=== PATIENT | female | born 1965 | race Caucasian/White ===

== ENCOUNTER → 2020-02-09 | Outpatient (CLI) | payer BC ==
[2020-02-09 15:53] VITALS: BP 116/76; PULSE 82; RESP 18; TEMP 98
--- NOTE | 2020-02-09 16:25 | P.GSHP ---
History of Present Illness H&P Date: 02/09/20 Chief Complaint: abnormal mammogram of the right breast Rosa is a 54-year-old white female who had a bilateral screening mammogram performed on the 2019. This revealed postoperative changes in the inferior portion of the left breast. A group of microcalcifications in the upper outer quadrant of the right breast at the 10 o'clock position which was increasing in number compared to prior studies. The patient subsequently underwent magnification views of the right breast. Magnification views were performed on . These revealed interval increase in number of microcalcifications in the upper outer quadrant of the right breast and recommendation was for a stereotactic core biopsy. The patient does not feel anything of concern in her breast. She is not complaining of any nipple discharge or skin changes. Left breast biopsy done in approximately 2014. This was benign. She is not complaining of any trauma or infection in her breast. Caffeine: 2 cups of coffee per day and intermittent pop Smoking: Half pack per day for 17 years She is not exposed to secondhand smoke Chocolate: Intermittently Hormones: None at the present time Family history: father: prostate cancer Hormonal history: Menarche: 10 M1, breast fed: no, age at first : 23 menopause: uterine ablation 2007, age 47 hormones: BCP: 10 years no other hormones Surgical Hisgtory: 1. uterine ablation 2.D&C 3. C section times 3 4. wisdom teeth 5. gallbladder Medical History 1. none Social History: smoke: Half a pack per day for 17 years Alcohol: One time a month Drugs: Negative - Constitutional Constitutional: Reports sweats - EENT Eyes: denies blurred vision, denies pain Ears: deny: decreased hearing, tinnitus Ears, nose, mouth and throat: Denies headache, Denies sore throat - Breasts Breasts: bilateral: as per HPI - Cardiovascular Comment: HTN Cardiovascular: Denies chest pain, Denies shortness of breath - Respiratory Respiratory: Denies cough, Denies 7 - Gastrointestinal Gastrointestinal: Denies abdominal pain, Denies diarrhea, Denies nausea, Denies vomiting - Genitourinary (Female) Genitourinary: Denies dysuria, Denies hematuria - Menstruation Menstruation: Reports postmenopausal - Musculoskeletal Musculoskeletal: Denies myalgias - Integumentary Comment: excema Integumentary: Denies pruritus, Denies rash - Neurological Neurological: Denies numbness, Denies weakness - Psychiatric Psychiatric: Denies anxiety, Denies depression - Endocrine Endocrine: Denies fatigue, Denies weight change - Hematologic/Lymphatic Comment: none - Allergic/Immunologic Allergic/Immunologic: Reports as per HPI Past Medical History Past Medical History: Hypertension, Liver Disease, Skin Disorder Additional Past Medical History / Comment(s): HX: eczema, fatty liver, ETOH abuse 2.5yrs. History of Any Multi-Drug Resistant Organisms: None Reported Past Surgical History: Cholecystectomy, Tubal Ligation Additional Past Surgical History / Comment(s): x 3, D&C, uterine ablation, wisdom teeth extraction x 4. Past Anesthesia/Blood Transfusion Reactions: No Reported Reaction Past Psychological History: No Psychological Hx Reported Additional Psychological History / Comment(s): Pt lives at home with her and 2 of her 3 grown children. She is independent. She drives a car. She uses no assistive devices and has no home care agencies. Smoking Status: Current every day smoker Past Alcohol Use History: Rare Additional Past Alcohol Use History / Comment(s): Pt stateshx of drinks 7-8 beers a day for approximately a couple of years. She smokes a half pack daily since age 16yrs. 02-02-20 Pt states she rarely drinks, quit in 2014 Past Drug Use History: None Reported - Past Family History Father Family Medical History: Cancer Additional Family Medical History / Comment(s): Father recently diagnosed with prostate cancer. Mother Family Medical History: No Reported History Additional Family Medical History / Comment(s): Mother from bronchitis in her 60's. Medications and Allergies Home Medications Medication Instructions Recorded Confirmed Type Lisinopril 10 mg PO DAILY 12/05/14 02/09/20 History Ezetimibe [Zetia] 10 mg PO DAILY 02/02/20 02/09/20 History Omeprazole [PriLOSEC] 40 mg PO AC-BRKFST 02/02/20 02/09/20 History Allergies Allergy/AdvReac Type Severity Reaction Status Date / Time No Known Drug Allergies Allergy Unknown Verified 02/09/20 15:52 Surgical - Exam Vital Signs Temp Pulse Resp BP Pulse Ox 98.0 F 82 18 116/76 96 02/09/20 15:50 02/09/20 15:50 02/09/20 15:50 02/09/20 15:50 02/09/20 15:50 BMI 25.6 - General well developed, well nourished, no distress - Eyes normal ocular movement - ENT no hearing loss, no congestion - Neck no masses, trachea midline - Respiratory normal respiratory effort, clear to auscultation - Cardiovascular Rhythm: regular Heart Sounds: normal: S1, S2 - Abdomen protuberant Abdomen: soft, non tender, no guarding, no rigid, no rebound - Integumentary normal turgor - Neurologic no disoriented, no combative - Musculoskeletal normal gait, normal posture - Psychiatric oriented to time, oriented to person, oriented to place, speech is normal, memory intact breast exam: BRA 40D inspection: no nipple inversion, ptosis grade3 Palpation: Right breast: Multi-positional exam fibrocystic changes no dominant masses or nodules of concern Right axilla: No adenopathy of concern Left breasts: No dominant masses or nodules of concern of multiple positional exam Left axilla: No adenopathy of concern Results mammogram results reviewed Assessment and Plan Assessment: Impression: 1. Right breast mammographic microcalcifications 2. Fibrocystic breast changes 3. Hypertension 4. exczema Plan: 1. right breast stero biopsy Patient has been recommended to undergo stereotactic core biopsy. Alternatives which would be watchful waiting or open biopsy in the operating room or not recommend mended. The risks and benefits of the procedure including bleeding infection reaction to the anesthetic are discussed. Patient and her understand and she wishes to proceed. This is scheduled for next week. CC: DR. Angella Cisneros encounter 35 minutes, > 50% of time in planning and counselling
== END | disposition home or self-care (01) ==
LOC: WWCWWP 14:42
PROVIDERS: ATTEND Surgery
DX: Z53.9 Procedure and treatment not carried out, unspecified reason (principal)

== ENCOUNTER → 2020-02-16 | Day surgery (SDC) | payer BC ==
[2020-02-16 07:38] VITALS: RESP 16
[2020-02-16 08:52] VITALS: BP 148/78; PULSE 76; TEMP 97.8
--- NOTE | 2020-02-16 08:56 | P.PCN ---
Date of Procedure: 02/16/20 Preoperative Diagnosis: Microcalcifications upper outer quadrant of the right breast and 10 o'clock position increase in a number Postoperative Diagnosis: Same Procedure(s) Performed: Stereotactic core biopsy right breast Anesthesia: local Surgeon: Tere Puri Estimated Blood Loss (ml): 0 Pathology: other (Breast tissue) Condition: stable Disposition: same day Indications for Procedure: Increasing microcalcifications right breast upper outer quadrant Operative Findings: Microcalcifications in biopsy specimen Description of Procedure: The patient is a 54-year-old white female who was noted to have increasing micr ocalcifications in the 10 o'clock position of the right breast. Biopsy was recommended. Stereotactic core biopsy versus watchful waiting versus open biopsy was considered with recommendation been stereotactic core biopsy. The patient understands and wishes to proceed. Patient was taken to [facility] core biopsy room. She was positioned on the low rad table. A rn intake film was obtained. The area of concern was identified. A stereo pair was obtained. The area was targeted. The breast was prepped using Betadine. 20 mL of 1% lidocaine was used to anesthetize the area of concern. An 18-gauge vacuum-assisted core biopsy needle was driven to the correct coordinates. The needle was fired. Post fire films were obtained. The needle was noted to be to the right of the lesion on the X axis, and this was corrected. Repeat radiographs revealed the needle to be in a better location. 8 stereotactic cores of tissue were taken taking; 3 at the 9 o'clock position. Radiograph of the specimen revealed the area of concern had been sampled with microcalcifications in the specimen. A secure cira Top-Hat clip was left in place. Radiograph revealed this was in the correct location. The patient tolerated the procedure in stable condition. The patient will follow-up with Dr. Alonso next week. The specimen was sent to pathology.
--- NOTE | 2020-02-16 16:12 | MM ---
EXAMINATION TYPE: MG stereo VAD BX RT DATE OF EXAM: 02/16/2020 COMPARISON: Mammogram 01/16/2020 CLINICAL HISTORY: Abnormal mammogram TECHNIQUE: Stereotactic guided core biopsy of right breast. FINDINGS: [facility] pathway for biopsy was chosen. The procedure was performed by Dr. Gavin Rincon. Targeting was provided by radiology. Specimen: Specimen demonstrates calcifications within the specimen. Surgical clip is at the resected calcification site. Post procedure mammogram mammogram: Post procedure mammogram was obtained. Surgical clip is in the expected calcifications site. IMPRESSION: 1. Successful stereotactic core biopsy right breast calcifications. Recommendations: 1. Recommendations are pending pathology results. Pathology Results: High Risk RIGHT BREAST, STEREOTACTIC CORE BIOPSY: Fibrocystic changes including fibroadenomatoid hyperplasia with calcifications, fibrosis, cysts and sclerosing adenosis. Radial scar with usual type ductal hyperplasia. Recommendation Surgical consult of the right breast. Needle loc with excision for radial scar. MTDD
== END ==
LOC: RADMAMWWP 07:10
PROVIDERS: ATTEND Surgery
DX: D24.1 Benign neoplasm of right breast (principal); N60.31 Fibrosclerosis of right breast; N60.21 Fibroadenosis of right breast
CPT/HCPCS: 88305; 19081; A4648; J2001

== ENCOUNTER → 2020-02-24 | Outpatient (CLI) | payer BC ==
[2020-02-24 15:45] VITALS: BP 126/79; PULSE 74; RESP 18; TEMP 98.5
--- NOTE | 2020-02-24 16:15 | P.PN ---
Subjective Progress Note Date: 02/24/20 Principal diagnosis: radial scar right breast on stero biopsy Rosa is a 54-year-old white female status post stereotactic core biopsy right breast on 02-16-20. Pathology revealed a radial scar. She was recommended to have a needle localization and resection. The patient has no complaints related to the procedure. We have discussed the operative approach to do this and the resection could be done via a Coe pattern reduction mammoplasty incision. The patient is interested in this approach being utilized. She is going to confirm this with her insurance company. We have also discussed that should this approach be utilized she will need a symmetry procedure on the contralateral breast. Objective - Vital Signs Vital signs: Vital Signs Temp 98.5 F 02/24/20 15:43 Pulse 74 02/24/20 15:43 Resp 18 02/24/20 15:43 BP 126/79 02/24/20 15:43 Pulse Ox 95 02/24/20 15:43 Intake & Output 02/23/20 02/24/20 02/24/20 18:59 06:59 18:59 Weight 63.503 kg - Exam BMI 25.6 - Constitutional General appearance: Present: average body habitus - EENT ENT: Present: hearing grossly normal - Respiratory Respiratory: bilateral: CTA - Cardiovascular Rhythm: regular Heart sounds: normal: S1, S2 - Integumentary Integumentary: Present: normal turgor - Musculoskeletal Musculoskeletal: Present: gait normal - Psychiatric Psychiatric: Present: A&O x's 3, appropriate affect, intact judgment & insight - Additional findings Additional findings: Biopsy site right breast clean and dry no evidence of hematoma no infection Assessment and Plan Assessment: Impression: 1. Radial scar and stereo biopsy right breast 2. Needle localization excisional biopsy, patient would like this to be done via a Coe pattern reduction mastopexy incision Plan: 1. Needle localization excisional biopsy via Coe pattern reduction mastopexy incision of the right breast 2. Patient is going to check her insurance to assure left breast symmetry procedure can be performed CC: Kanu Cortes Risk and benefits of the procedure were discussed with the patient and her daughter. They understand and this will be scheduled in the near future. Using a purple marking pen the lines for possible resection should a coe pattern resection be done were marked. encounter 20 minutes, > 50% of time in planning and counselling
== END | disposition home or self-care (01) ==
LOC: WWCWWP 15:37
PROVIDERS: ATTEND Surgery
DX: Z53.9 Procedure and treatment not carried out, unspecified reason (principal)

== ENCOUNTER → 2020-04-27 | Outpatient (CLI) | payer BC ==
--- NOTE | 2020-04-27 16:11 | P.PN ---
Subjective Progress Note Date: 04/27/20 Principal diagnosis: radial scar right breast Rosa is a 54-year-old white female who had a bilateral screening mammogram performed on the 2019. This revealed postoperative changes in the inferior portion of the left breast. A group of microcalcifications in the upper outer quadrant of the right breast at the 10 o'clock position which was increasing in number compared to prior studies. The patient subsequently underwent magnification views of the right [place] [id number]. These revealed interval increase in number of microcalcifications in the upper outer quadrant of the right breast and recommendation was for a stereotactic core biopsy. The patient does not feel anything of concern in her breast. She is not complaining of any nipple discharge or skin changes. Left breast biopsy done in approximately 2014. This was benign. She is not complaining of any trauma or infection in her breast. Stereotactic core biopsy was performed and [id number]. Pathology revealed radial scar with fibrocystic changes. Secondary to the radial scar needle localization and excisional biopsy was recommended. The patient understands the risks and benefits and wishes to proceed. Caffeine: 2 cups of coffee per day and intermittent pop Smoking: Half pack per day for 17 years She is not exposed to secondhand smoke Chocolate: Intermittently Hormones: None at the present time Family history: father: prostate cancer Hormonal history: Menarche: 10 M1, breast fed: no, age at first : 23 menopause: uterine ablation 2007, age 47 hormones: BCP: 10 years no other hormones Surgical Hisgtory: 1. uterine ablation 2.D&C 3. C section times 3 4. wisdom teeth 5. gallbladder Medical History 1. none Social History: smoke: Half a pack per day for 17 years Alcohol: One time a month Drugs: Negative - Constitutional Constitutional: Reports sweats - EENT Eyes: denies blurred vision, denies pain Ears: deny: decreased hearing, tinnitus Ears, nose, mouth and throat: Denies headache, Denies sore throat - Breasts Breasts: bilateral: as per HPI - Cardiovascular Comment: HTN Cardiovascular: Denies chest pain, Denies shortness of breath - Respiratory Respiratory: Denies cough, - Gastrointestinal Gastrointestinal: Denies abdominal pain, Denies diarrhea, Denies nausea, Denies vomiting - Genitourinary (Female) Genitourinary: Denies dysuria, Denies hematuria - Menstruation Menstruation: Reports postmenopausal - Musculoskeletal Musculoskeletal: Denies myalgias - Integumentary Comment: excema Integumentary: Denies pruritus, Denies rash - Neurological Neurological: Denies numbness, Denies weakness - Psychiatric Psychiatric: Denies anxiety, Denies depression - Endocrine Endocrine: Denies fatigue, Denies weight change - Hematologic/Lymphatic Comment: none - Allergic/Immunologic Allergic/Immunologic: Reports as per HPI Objective - Vital Signs Vital signs: Intake & Output 04/26/20 04/27/20 04/27/20 18:59 06:59 18:59 Weight 63.503 kg - Exam BMI 25.6 - Constitutional General appearance: Present: average body habitus - EENT Eyes: Present: EOMI ENT: Present: hearing grossly normal - Neck Neck: Present: normal ROM - Respiratory Respiratory: bilateral: CTA - Cardiovascular Rhythm: regular Heart sounds: normal: S1, S2 - Gastrointestinal General gastrointestinal: Present: normal bowel sounds, soft - Integumentary Integumentary: Present: normal turgor - Musculoskeletal Musculoskeletal: Present: gait normal - Psychiatric Psychiatric: Present: A&O x's 3, appropriate affect, intact judgment & insight - Additional findings Additional findings: breast exam: BRA: 40D inspection: grade 3 ptosis bilateral palpation: right breast: multi positional exam no dominant masses or nodules of concern Right axilla: No adenopathy of concern left breast: Multi-positional exam no dominant masses or nodules of concern left breast smaller than right breast Left axilla: No adenopathy of concern Assessment and Plan Assessment: Impression: 1. Radial scar on stereotactic core biopsy right breast 2. Macromastia 3. Shoulder notching back pain 4. Asymmetry of the breast with right breast being larger than the left breast Plan: 1. Patient to undergo needle localization excisional biopsy of the radial scar in the right breast, this will be done via a fowler pattern reduction mastopexy incision 2. Preoperative clearance The patient was noted to have radial scar and stereotactic core biopsy. It is necessary for excisional biopsy of this to be performed. The patient was given the option of this being performed via a simple incision and resection versus via a was put a reduction mastopexy incision. She is opted for the fowler pattern reduction mastopexy incision. She understands the risks and benefits and wishes to proceed. She understands that she will have asymmetry of the breast following this and not she may opt for surgery for symmetry procedure. She declined offered to see a plastic surgeon. It is necessary she stop smoking prior to the procedure. She understands that if the lesion were cancer that may be necessary to do additional surgery. Lines were drawn S2 with incision would be made. The patient understands and wishes to proceed. CC: Tisha Herbert encounter 30 minutes, > 50% of time in planning and counselling
[2020-04-27 16:29] VITALS: BP 133/84; PULSE 80; RESP 18; TEMP 98
== END | disposition home or self-care (01) ==
LOC: WWCWWP 15:32
PROVIDERS: ATTEND Surgery
DX: Z53.9 Procedure and treatment not carried out, unspecified reason (principal)

== ENCOUNTER 2020-05-08 09:51 | Day surgery (SDC) | payer BC ==
[2020-05-03 14:27] VITALS: BMI 25.6
[~2020-05-08 09:51] MED LIST: HEPARIN SODIUM,PORCINE 5,000 UNIT/ML 1 ML VIAL SQ ONE
[2020-05-08] MEDS ORDERED: LACTATED RINGERS 1,000 ML IV SCH (10:10)
[2020-05-08] MEDS ORDERED: DEXAMETHASONE SOD PHOSPHATE 10 MG/ML 1 ML VIAL IV ONE (10:10)
[2020-05-08] MEDS ORDERED: LIDOCAINE 1% (10MG/ML) FOR IV START INTRADERMA PRN (10:10)
[2020-05-08 10:22] VITALS: RESP 16
[2020-05-08] MEDS ORDERED: HEPARIN SODIUM,PORCINE 5,000 UNIT/ML 1 ML VIAL ONE (10:28)
[2020-05-08] MEDS ORDERED: ONDANSETRON 4 MG/2 ML VIAL ONE (10:28)
[2020-05-08] MEDS ORDERED: ALPRAZolam 0.5 MG TAB ONE (10:28)
[2020-05-08] MEDS ORDERED: LIDOCAINE 1% INJ 10MG/ML (20 ML MDV) SQ ONE ×2 (11:14→14:24)
[2020-05-08] MEDS ORDERED: LIDOCAINE 1% INJ 10MG/ML (20 ML MDV) ONE (13:37)
[2020-05-08] MEDS ORDERED: PROPOFOL 10 MG/ML 20 ML VIAL IV ONE (13:37)
[2020-05-08] MEDS ORDERED: HYDROmorphone (PF) 1 MG/ML ONE (13:37)
[2020-05-08] MEDS ORDERED: fentaNYL (PF) 50 MCG/ML 2 ML AMP ONE (13:37)
[2020-05-08] MEDS ORDERED: MIDAZOLAM 2 MG/2 ML VIAL ONE (13:37)
--- NOTE | 2020-05-08 15:23 | MM ---
EXAMINATION TYPE: MG pre op needle loc RT, MG surgical specimen RT DATE OF EXAM: 05/08/2020 COMPARISON: Prior stereotactic guided core biopsy February 16, 2020 and older studies. CLINICAL HISTORY: Radial scar or high risk lesion on stereo biopsy February 16, 2020. TECHNIQUE: Needle localization with wire placement and surgical excision of area of concern in the right breast. FINDINGS: The procedure of needle localization with wire placement and than surgical excision was explained to the patient. Benefits, alternatives, and risks were discussed. An informed consent was then obtained. The shortest pathway for procedure was chosen. Shortest pathway was lateral approach. The overlying skin was prepped and draped in usual sterile fashion. Lidocaine is used as anesthetic into the skin and subcutaneous tissue up to the level of area of concern. A 5 cm needle was used. It was placed via a lateral approach under mammographic guidance. Subsequent 90 degrees mammogram show the needle to be in satisfactory position relative to the targeted area. At this point, wire was placed and the needle was withdrawn. The wire was fixed to patient's skin. Images were marked for surgeon. The patient tolerated the procedure well without any immediate complication. The patient was kept in the radiology department for short stay after the procedure and then taken to surgery for surgical excision. Targeted biopsy clip and wire are identified in specimen mammogram. The patient was kept in hospital for short stay after the procedure and then discharged home in stable condition. IMPRESSION: Successful, uncomplicated needle localization with wire placement and surgical excision of targeted biopsy clip in the right breast, full pathology results to follow. Pathology Results: Benign A. RIGHT BREAST, NEEDLE LOCALIZATION EXCISION: Fibrocystic changes including sclerosing adenosis with calcifications, fibrosis, fibroadenomatoid hyperplasia, cysts and apocrine metaplasia. Previous biopsy site. B. RIGHT BREAST, REDUCTION MAMMOPLASTY TISSUE: Benign skin and breast tissue with fibrocystic changes. Recommendation Follow up mammogram of the right breast in 6 months. MARISSA
--- NOTE | 2020-05-08 16:04 | P.OP ---
Date of Procedure: 05/08/20 Preoperative Diagnosis: Radial scar on core biopsy/grade 3 ptosis and macromastia Postoperative Diagnosis: Same Procedure(s) Performed: needle localization and excisional biopsy right breast via Coe pattern reduction mastopexy incision Anesthesia: VIVIENA Surgeon: Tere Puri Estimated Blood Loss (ml): 75 IV fluids (ml): 400 Pathology: other (breast tissue) Condition: stable Disposition: same day Indications for Procedure: radial scar on core biopsy, patient with grade 3 ptosis and macromastia Operative Findings: Fibrofatty breast tissue Description of Procedure: Rosa is a 54-year-old white female who had a core biopsy done revealing a radial scar in the right breast. It was recommended she undergo needle localization and excisional biopsy. She also has grade 3 ptosis and macr omastia. After discussion she wished this to be removed via an onco plastic incision via a Coe pattern mastopexy incision In the preoperative area the margin so the incision were drawn. Risk and benefits were again discussed with the patient and her and she was given the option of a simple lumpectomy however she very much wished this to be removed via a reduction mastopexy incision. The markings were placed for a Coe pattern. The patient was taken to the operating room and the inferior pedicle was de- epithelialized. A # 45 cookie cuutter was utilized for the nipple areolar size. This was also utilized for the size of the new nipple areolar opening. After the de-epithelialization was performed using the other pattern lines which had been drawn to excise the redundant Skin and subcutaneous tissue. The skin flaps were then developed around the breast parenchyma in the subcuticular plane. The skin flap which was developed laterally was dissected to the needle which was used for localization. Wide excision around the needle was performed. The defect was closed using 3-0 Vicryl suture. The tissue was painted for orientation. Radiograph of this revealed that the area of concern had been removed. The specimens were approximately 130 g. The skin was brought together, the subcutaneous tissues were reapproximated. They were closed using 3-0 Vicryl suture. This was followed by 4-0 Monocryl suture in a subcuticular tissue. This was followed by a nylon suture. The patient tolerated the procedure in stable condition. All instrument and sponge counts were correct at the end of the case.
--- NOTE | 2020-05-08 16:06 | P.DS ---
Providers Attending physician: Tere Puri Primary care physician: Saravanan Perales Plan - Discharge Summary Discharge Rx Participant: No New Discharge Prescriptions: No Action lisinopriL [Lisinopril] 10 mg PO DAILY Ezetimibe [Zetia] 10 mg PO HS Omeprazole [PriLOSEC] 40 mg PO AC-BRKFST Stool Softner 1 tab PO DAILY Discharge Medication List lisinopriL [Lisinopril] 10 mg PO DAILY 12/05/14 [History] Ezetimibe [Zetia] 10 mg PO HS 02/02/20 [History] Omeprazole [PriLOSEC] 40 mg PO AC-BRKFST 02/02/20 [History] Stool Softner 1 tab PO DAILY 05/03/20 [History] Follow up Appointment(s)/Referral(s): Tere Puri MD [STAFF PHYSICIAN] - 1 Week Activity/Diet/Wound Care/Special Instructions: do not drive until seen by Dr. Alonso may shower after 48 hours wear bra at all times Discharge Disposition: HOME SELF-CARE
[2020-05-08 16:24] VITALS: TEMP 97.4
[2020-05-08] MEDS ORDERED: LACTATED RINGERS 1,000 ML IV ONE (17:09)
[2020-05-08] MEDS ORDERED: HYDROcodone/APAP 5-325MG 1 EACH TAB ONE (17:25)
[2020-05-08] MEDS ORDERED: HYDROcodone/APAP 5-325MG 1 EACH TAB PO ONE (17:30)
[2020-05-08 17:49] VITALS: BP 130/80; PULSE 70
== END 2020-05-08 18:27 | disposition home or self-care (01) ==
LOC: OR 09:51
PROVIDERS: ATTEND Surgery
DX: N60.21 Fibroadenosis of right breast (principal); N60.31 Fibrosclerosis of right breast; N60.81 Other benign mammary dysplasias of right breast; N62 Hypertrophy of breast; N64.81 Ptosis of breast; L90.5 Scar conditions and fibrosis of skin; F17.210 Nicotine dependence, cigarettes, uncomplicated; I10 Essential (primary) hypertension; E78.5 Hyperlipidemia, unspecified; K21.9 Gastro-esophageal reflux disease without esophagitis; Z79.899 Other long term (current) drug therapy; Z80.42 Family history of malignant neoplasm of prostate; Z98.891 History of uterine scar from previous surgery; Z98.818 Other dental procedure status; Z90.49 Acquired absence of other specified parts of digestive tract; Z98.890 Other specified postprocedural states
CPT/HCPCS: 19125; 88305; 88307; 76098; 19281; J2250; J1644; J1100; J0690; J2405; J2001; J3010; J1170; J2704

== ENCOUNTER → 2020-05-17 | Outpatient (CLI) | payer BC ==
[2020-05-17 13:45] VITALS: BP 150/75; PULSE 70; RESP 18; TEMP 98.2
--- NOTE | 2020-05-17 13:50 | P.PN ---
Progress Note - Text Progress Note Date: 05/17/20 Rosa is a 54-year-old white female status post right breast needle localization and excisional biopsy of a radial scar. Final pathology revealed fibrocystic changes including sclerosing adenosis no cancer. This was done via a reduction mammoplasty incision. The patient has done well postoperatively she has some minimal swelling in the breast. There is no evidence of infection. She has some minimal necrosis at the inferior aspect of the nipple areolar complex. This appears to be partial-thickness. She does have sensation in the nipple areolar complex. Physical examination: Lungs: Decreased breath sounds at the bases with some inspiratory wheezing Heart: Regular rate and rhythm Incisions: Clean and dry some partial thickness necrosis at the inferior areolar aspect, the sutures do not appear ready for removal at this time Fullness of the breast with some questionable seroma fluid nothing for drainage at this time No evidence of infection Impression/plan: 1. Patient doing well postop right breast needle localization excisional biopsy via a reduction mammoplasty approach Plan: 1. Sutures should remain until next week 2. Patient to call if she has any questions or concerns Patient is very satisfied with the cosmetic results and wishes the contralateral breast to be operated on for symmetry.
== END | disposition home or self-care (01) ==
LOC: WWCWWP 12:50
PROVIDERS: ATTEND Surgery
DX: Z53.9 Procedure and treatment not carried out, unspecified reason (principal)

== ENCOUNTER → 2020-05-24 | Outpatient (CLI) | payer BC ==
--- NOTE | 2020-05-24 09:05 | P.PN ---
Progress Note - Text Rosa is a 54-year-old white female status post right breast needle localization and excisional biopsy of a radial scar on 05-08-20. Final pathology revealed fibrocystic changes including sclerosing adenosis no cancer. This was done via a reduction mammoplasty incision. She has reduced her smoking 3-4 cigarettes per day. She does not complain of any fever or chills. She is not complaining of any swelling or pain in the breasts. Physical examination: Lungs: Breath sounds clear basis today Heart: Regular rate and rhythm Incisions: Clean and dry, no evidence of infection, partial thickness necrosis noted before is sloughing and healing Fullness of the breast with some questionable seroma fluid No evidence of infection Impression/plan: 1. Patient doing well postop right breast needle localization excisional biopsy via a reduction mammoplasty approach done 05-08-20 Plan: 1. Sutures removed 2. Patient to call if she has any questions or concerns 3. aspiration of seroma Patient is very satisfied with the cosmetic results and wishes the contralateral breast to be operated on for symmetry.
--- NOTE | 2020-05-24 09:07 | P.PCN ---
Date of Procedure: 05/24/20 Preoperative Diagnosis: seroma right breast Postoperative Diagnosis: Same Procedure(s) Performed: Aspiration seroma right breast Surgeon: Tere Puri Pathology: none sent Condition: stable Disposition: same day Indications for Procedure: Seroma right breast Operative Findings: serous fluid right breast Description of Procedure: The right breast appeared to have a seroma at the lower inner aspect. After informed consent aspiration was performed. The area was prepped using alcohol. A 60 mL syringe with an 18-gauge needle was used to aspirate the seroma fluid. Approximately 215 mL of fluid was removed. The fluid was serous in nature. The patient tolerated the procedure in stable condition.
[2020-05-24 09:42] VITALS: BP 153/87; PULSE 77; RESP 16; TEMP 98.3
== END | disposition home or self-care (01) ==
LOC: WWCWWP 08:22
PROVIDERS: ATTEND Surgery
DX: Z53.9 Procedure and treatment not carried out, unspecified reason (principal)

== ENCOUNTER → 2020-06-01 | Outpatient (CLI) | payer BC ==
--- NOTE | 2020-06-01 08:51 | P.PN ---
Progress Note - Text Progress Note Date: 06/01/20 Rosa is a 54-year-old white female status post right breast needle localization and excisional biopsy of a radial scar on 05-08-20. Final pathology revealed fibrocystic changes including sclerosing adenosis no cancer. This was done via a reduction mammoplasty incision. She has reduced her smoking 5 cigarettes per day. She does not complain of any fever or chills. She is not complaining of any swelling or pain in the breasts. This last seen in 1719 at which time a seroma was drained. Physical examination: Lungs: Breath sounds decreased at bases Heart: Regular rate and rhythm Incisions: Clean and dry, no evidence of infection, partial thickness necrosis noted before is sloughing and healing Fullness of the breast with some questionable seroma fluid No evidence of infection Impression/plan: 1. Patient doing well postop right breast needle localization excisional biopsy via a reduction mammoplasty approach done 05-08-20 Plan: 1. Patient to call if she has any questions or concerns 2. aspiration of seroma Patient is very satisfied with the cosmetic results and wishes the contralateral breast to be operated on for symmetry. Additional CC's: Tisha Zelaya
--- NOTE | 2020-06-01 08:52 | P.OP ---
Date of Procedure: 06/01/20 Preoperative Diagnosis: Seroma right breast Postoperative Diagnosis: Same Procedure(s) Performed: Aspiration seroma Surgeon: Tere Puri Description of Procedure: The area of fluctuance of the lateral aspect of the breast was prepped using alcohol. An 18-gauge needle on a 60 mL syringe was inserted into an area of fluctuance. Approximately 100 mL of fluid which was serous in nature was withd rawn. Following this the made a mild amount of fluctuance the medial aspect of the breast the breast was again prepped using alcohol. An 18-gauge needle on a 60 mL syringe was inserted and 20 mL of fluid was obtained. Total proximally 120 mL of seroma fluid was aspirated. The patient tolerated procedure in stable condition.
[2020-06-01 09:10] VITALS: BP 162/83; PULSE 73; RESP 18; TEMP 97.8
== END | disposition home or self-care (01) ==
LOC: WWCWWP 08:27
PROVIDERS: ATTEND Surgery
DX: Z53.9 Procedure and treatment not carried out, unspecified reason (principal)

== ENCOUNTER → 2020-06-15 | Outpatient (CLI) | payer BC ==
[2020-06-15 09:00] VITALS: BP 138/92; PULSE 82; RESP 12; TEMP 98.1
--- NOTE | 2020-06-15 09:12 | P.PN ---
Subjective Progress Note Date: 06/15/20 Principal diagnosis: Patient status post reduction mammoplasty on 05-08-20, checking incision Rosa is a 54-year-old white female status post right breast needle localization and excisional biopsy of a radial scar on 05-08-20. Final pathology revealed fibrocystic changes including sclerosing adenosis no cancer. This was done via a reduction mammoplasty incision. She has reduced her smoking 4 cigarettes per day. She does not complain of any fever or chills. She states yesterday that the area at the trifurcation in the lower aspect of the incision opened slightly with some drainage. This last seen 06-01-20 at which time a seroma was drained. Physical examination: Lungs: Breath sounds clear Heart: Regular rate and rhythm Incisions: The trifurcation at the inferior aspect of the incision has opened the area of granulation tissue is approximately 4 cm x 1.5 cm. This does not appear to be infected Seroma fluid No evidence of infection Impression/plan: 1. Patient doing well postop right breast needle localization excisional biopsy via a reduction mammoplasty approach done 05-08-20 Plan: 1. The plan is to reinforce the trifurcation site 2. aspiration of seroma The area of the trifurcation site was prepped using Betadine. 1% lidocaine was injected into the area approximately 3 mL. Several sutures of 3-0 nylon were placed as reinforce the trifurcation site. The patient tolerated this without difficulty. The patient is doing well we'll follow up in 1 week Patient is very satisfied with the cosmetic results and wishes the contralateral breast to be operated on for symmetry. Objective - Vital Signs Vital signs: Vital Signs Temp 98.1 F 06/15/20 08:54 Pulse 82 06/15/20 08:54 Resp 12 06/15/20 08:54 BP 138/92 06/15/20 08:54 Pulse Ox 97 06/15/20 08:54 Intake & Output 06/14/20 06/15/20 06/15/20 18:59 06:59 18:59 Weight 63.503 kg
== END | disposition home or self-care (01) ==
LOC: WWCWWP 08:36
PROVIDERS: ATTEND Surgery
DX: Z53.9 Procedure and treatment not carried out, unspecified reason (principal)

== ENCOUNTER → 2020-06-21 | Outpatient (CLI) | payer BC ==
[2020-06-21 16:34] VITALS: BP 174/89; PULSE 74; RESP 12; TEMP 98.1
--- NOTE | 2020-06-21 16:53 | P.PN ---
Progress Note - Text Progress Note Date: 06/21/20 Patient status post reduction mammoplasty on 05-08-20, checking incision Rosa is a 54-year-old white female status post right breast needle localization and excisional biopsy of a radial scar on 05-08-20. Final pathology revealed fibrocystic changes including sclerosing adenosis no cancer. This was done via a reduction mammoplasty incision. She has reduced her smoking 4 cigarettes per day. She does not complain of any fever or chills. She has an area of granulation tissue at the trifurcation site. This is approximately 3.5 cm x 1.8 cm and it is granulating in well. The suture which was placed last week has been removed. No seroma for drainage on today's exam. This last seen 06-01-20 at which time a seroma was drained. Physical examination: Lungs: Breath sounds clear Heart: Regular rate and rhythm Incisions: The trifurcation at the inferior aspect of the incision has opened th e area of granulation tissue is approximately 3.5 cm x 1.8 cm. This does not appear to be infected No Seroma fluid No evidence of infection Impression/plan: 1. Patient doing well postop right breast needle localization excisional biopsy via a reduction mammoplasty approach done 05-08-20 Plan: 1. Sutures removed from the reinforcement of the trifurcation site 2. no seroma for aspiration today 3. continue present therapy cc: Dr. Zelaya
== END | disposition home or self-care (01) ==
LOC: WWCWWP 16:08
PROVIDERS: ATTEND Surgery
DX: Z53.9 Procedure and treatment not carried out, unspecified reason (principal)

== ENCOUNTER → 2020-09-20 | Outpatient (CLI) | payer BC ==
[2020-09-20 16:25] VITALS: BP 166/87; PULSE 79; RESP 18; TEMP 98.5
--- NOTE | 2020-09-20 16:44 | P.PN ---
Subjective Progress Note Date: 09/20/20 Principal diagnosis: Asymmetry of the breast Rosa is a 55-year-old white female who had a bilateral screening mammogram performed on January 05 2020. This revealed postoperative changes in the inferior portion of the left breast. A group of microcalcifications in the upper outer quadrant of the right breast at the 10 o'clock position which was increasing in number compared to prior studies. The patient subsequently underwent magnification views of the right breast. Magnification views were performed on . These revealed interval increase in number of microcalcifications in the upper outer quadrant of the right breast and recommendation was for a stereotactic core biopsy. The patient does not feel anything of concern in her breast. She is not complaining of any nipple discharge or skin changes. Left breast biopsy done in approximately 2014. This was benign. She is not complaining of any trauma or infection in her breast. She [place] [address]. This revealed a radial scar. She therefore underwent a needle localization and excisional resection of the area of concern in the right breast on 9119. This was done via a Coe pattern mammoplasty incision. The patient now is doing well however has asymmetry of her breast related to the require operative intervention. She is asymmetric making it very difficult to find close to fit well. She also has difficulty with pain in her back secondary to the asymmetry of the breasts. The patient wishes to have a symmetry procedure performed. Caffeine: 2 cups of coffee per day and intermittent pop Smoking: Half pack per day for 17 years She is not exposed to secondhand smoke Chocolate: Intermittently Hormones: None at the present time Family history: father: prostate cancer Hormonal history: Menarche: 10 M1, breast fed: no, age at first : 23 menopause: uterine ablation 2007, age 47 hormones: BCP: 10 years no other hormones Surgical Hisgtory: 1. uterine ablation 2.D&C 3. C section times 3 4. wisdom teeth 5. gallbladder 6. right breast biopsy Medical History 1. none Social History: smoke: Half a pack per day for 17 years Alcohol: One time a month Drugs: Negative - Constitutional Constitutional: Reports sweats - EENT Eyes: denies blurred vision, denies pain Ears: deny: decreased hearing, tinnitus Ears, nose, mouth and throat: Denies headache, Denies sore throat - Breasts Breasts: bilateral: as per HPI - Cardiovascular Comment: HTN Cardiovascular: Denies chest pain, Denies shortness of breath - Respiratory Respiratory: Denies cough - Gastrointestinal Gastrointestinal: Denies abdominal pain, Denies diarrhea, Denies nausea, Denies vomiting - Genitourinary (Female) Genitourinary: Denies dysuria, Denies hematuria - Menstruation Menstruation: Reports postmenopausal - Musculoskeletal Musculoskeletal: Denies myalgias - Integumentary Comment: excema Integumentary: Denies pruritus, Denies rash - Neurological Neurological: Denies numbness, Denies weakness - Psychiatric Psychiatric: Denies anxiety, Denies depression - Endocrine Endocrine: Denies fatigue, Denies weight change - Hematologic/Lymphatic Comment: none - Allergic/Immunologic Allergic/Immunologic: Reports as per HPI Objective - Vital Signs Vital signs: Vital Signs Temp 98.5 F 09/20/20 16:23 Pulse 79 09/20/20 16:23 Resp 18 09/20/20 16:23 BP 166/87 09/20/20 16:23 Pulse Ox 95 09/20/20 16:23 Intake & Output 09/19/20 09/20/20 09/20/20 18:59 06:59 18:59 Weight 62.596 kg - Exam BMI 25.2 - Constitutional General appearance: Present: average body habitus - EENT Eyes: Present: EOMI ENT: Present: hearing grossly normal - Neck Neck: Present: normal ROM - Respiratory Respiratory: bilateral: diminished (at the bases) - Cardiovascular Rhythm: regular Heart sounds: normal: S1, S2 - Gastrointestinal General gastrointestinal: Present: normal bowel sounds, soft - Integumentary Integumentary: Present: normal turgor - Musculoskeletal Musculoskeletal: Present: gait normal - Psychiatric Psychiatric: Present: A&O x's 3, appropriate affect - Additional findings Additional findings: breast exam: BRA: 39DD left breast, right breast about half the size of the left inspection: Breast ptosis grade 1/10, left breast grade 3 ptosis Palpation: Right breast: Well-healed scar from prior surgery, multiple positional exam no dominant masses or nodules of concern Right axilla: No adenopathy of concern Left breast: Multiple positional exam no dominant masses or nodules of concern, Left axilla: No adenopathy of concern Assessment and Plan Assessment: Impression: 1. Patient has marked asymmetry of the breast related to prior right breast lumpectomy, this causes her to be very difficult for her to find close to fit and back pain 2. Patient has stopped smoking at this point in time Plan: 1. Left breast reduction mammoplasty secondary to asymmetry related to necessary for right breast surgery and back pain Risk and benefits of the procedure were discussed with the patient. The patient was given the option of seeing a plastic surgeon but has declined. She understands that the breast will be similar in size but not exact. Risks inc lude but are not limited to bleeding, infection, reaction to the anesthetic. She also said understands the smoking will inhibit wound healing and she must stop smoking or will not do the procedure. CC: Tisha Acosta encounter 45 minutes, > 50% of time in planning and counselling
== END | disposition home or self-care (01) ==
LOC: WWCWWP 16:11
PROVIDERS: ATTEND Surgery
DX: Z53.9 Procedure and treatment not carried out, unspecified reason (principal)

== ENCOUNTER 2020-10-01 09:22 | Day surgery (SDC) | payer BC ==
[2020-09-26 15:21] VITALS: BMI 25.6
[~2020-10-01 09:22] MED LIST changes: +DEXAMETHASONE SOD PHOSPHATE 4 MG/ML 1 ML VIAL IV ONE; -HEPARIN SODIUM,PORCINE 5,000 UNIT/ML 1 ML VIAL SQ ONE; +HYDROmorphone 0.5 MG/0.5 ML SYRINGE IVP PRN; +LACTATED RINGERS 1,000 ML IV SCH; +MIDAZOLAM 2 MG/2 ML VIAL IV PRN; +ONDANSETRON 4 MG/2 ML VIAL IVP ONE; +Pre Op ABX Message 1 EACH MISC MISCELLANE ONE; +SCOPOLAMINE 1.5MG/72HR PATCH TRANSDERM ONE
[2020-10-01 10:08] VITALS: RESP 16
[2020-10-01] MEDS ORDERED: LIDOCAINE 1% (10MG/ML) FOR IV START INTRADERMA ONE (10:08)
[2020-10-01] MEDS: HEPARIN SODIUM,PORCINE 5,000 UNIT/ML 1 ML VIAL SQ PRN ×2 (10:09→10:36)
[2020-10-01 10:24] LABS: HCT 47.4 % (34.0-46.0); HGB 16.1 gm/dL (11.4-16.0); MCH 28.6 pg (25.0-35.0); Mean Platelet Volume 6.6; Platelet Count 327 k/uL (150-450); RBC 5.65 m/uL (3.80-5.40); RDW 13.3 % (11.5-15.5); WBC 9.8 k/uL (3.8-10.6)
[2020-10-01] MEDS ORDERED: fentaNYL (PF) 50 MCG/ML 2 ML AMP ONE (11:34)
[2020-10-01] MEDS ORDERED: MIDAZOLAM 2 MG/2 ML VIAL ONE (11:34)
[2020-10-01] MEDS ORDERED: PROPOFOL 10 MG/ML 20 ML VIAL IV ONE (11:34)
[2020-10-01] MEDS ORDERED: LIDOCAINE 1% INJ 10MG/ML (20 ML MDV) ONE (11:34)
[2020-10-01] MEDS ORDERED: SUCCINYLCHOLINE CHLORIDE 100 MG/5 ML SYR IV ONE (11:34)
[2020-10-01] MEDS ORDERED: NEOSTIGMINE 1 MG/ML 10 ML VIAL ONE (11:34)
[2020-10-01] MEDS ORDERED: GLYCOPYRROLATE 0.2 MG/ML 2 ML VIAL ONE (11:34)
[2020-10-01] MEDS ORDERED: ROCURONIUM 10 MG/ML (10 ML VIAL) IV ONE (11:34)
[2020-10-01] MEDS ORDERED: SODIUM CHLORIDE 0.9% 100 ML with ceFAZolin 2,000 MG IV ONE ×2 (11:50)
[2020-10-01] MEDS ORDERED: LIDOCAINE 1% INJ 10MG/ML (20 ML MDV) SQ ONE ×2 (12:15)
[2020-10-01] MEDS ORDERED: LACTATED RINGERS 1,000 ML IV ONE (13:01)
--- NOTE | 2020-10-01 14:14 | P.OP ---
Date of Procedure: 10/01/20 Preoperative Diagnosis: asymmetry secondary to procedure done on the right breast Postoperative Diagnosis: same Procedure(s) Performed: fowler pattern reduction mammoplasty Anesthesia: VIVIENA Surgeon: Tere Puri Estimated Blood Loss (ml): 30 IV fluids (ml): 1,000 Pathology: other (breast tissue) Condition: stable Disposition: same day Indications for Procedure: Asymmetry of the breast Operative Findings: Fibrofatty breast tissue Description of Procedure: Rosa is a 55-year-old white female status post right breast surgery which resulted in symmetry of the breasts. After counseling she wished to have a symmetry procedure performed. She had been given the option of seeing a plastic surgeon and declined. In the preoperative area the left breast was marked for rise pattern reduction mammoplasty. The location of the nipple was measured to be symmetric to the left side at 24 cm from the sternal notch. Following marking the breast the patient was taken to the operating room. In the operative suite and following induction of anesthesia the right and left breast were prepped and draped in a sterile fashion. The area of the inferior pedicle was clearly marked to be 8 centimeters at its base and this was de- epithelialized. A U section of breast and skin was removed using the markings on the tissue. Following this skin flaps were developed superiorly and medially and laterally. The breast parenchyma was brought into apposition with the pedicle and secured using a 3-0 Vicryl suture. This was done after we were assured that hemostasis was attained using the electrocautery device and harmonic scalpel. The area for the nipple areolar size was delineated using the 45 cookie-cutter. This was also used to delineate the size of the new nipple opening. Following this the skin flaps were brought together and secured using 3-0 Vicryl subcutaneous closure. The subcuticular closure was performed using a 4-0 Monocryl. This was followed by a 4-0 nylon skin suture. The patient tolerated the procedure in stable condition. All instrument and sponge counts were correct at the end of the case. The left breast appeared to be symmetrical to the right breast. The tissue removed was measured and was used to 0.62 pounds.
--- NOTE | 2020-10-01 14:16 | P.DS ---
Providers Attending physician: Tere Puri Primary care physician: Saravanan Perales Plan - Discharge Summary Discharge Rx Participant: Yes New Discharge Prescriptions: No Action lisinopriL [Lisinopril] 20 mg PO QAM Ezetimibe [Zetia] 10 mg PO HS Omeprazole [PriLOSEC] 40 mg PO AC-BRKFST Stool Softner 1 tab PO QAM Discharge Medication List lisinopriL [Lisinopril] 20 mg PO QAM 12/05/14 [History] Ezetimibe [Zetia] 10 mg PO HS 02/02/20 [History] Omeprazole [PriLOSEC] 40 mg PO AC-BRKFST 02/02/20 [History] Stool Softner 1 tab PO QAM 05/03/20 [History] Follow up Appointment(s)/Referral(s): Tere Puri MD [STAFF PHYSICIAN] - 1 Week Activity/Diet/Wound Care/Special Instructions: Wear bra at all times Do not drive until seen by Dr. Alonso May shower after 48 hours Discharge Disposition: HOME SELF-CARE
[2020-10-01 14:22] VITALS: TEMP 97
[2020-10-01 15:24] VITALS: BP 178/90; PULSE 58
== END 2020-10-01 15:50 | disposition home or self-care (01) ==
LOC: OR 09:22
PROVIDERS: ATTEND Surgery
DX: N64.89 Other specified disorders of breast (principal); E78.5 Hyperlipidemia, unspecified; I10 Essential (primary) hypertension; K21.9 Gastro-esophageal reflux disease without esophagitis; Z98.891 History of uterine scar from previous surgery; Z87.891 Personal history of nicotine dependence; Z98.890 Other specified postprocedural states; Z79.899 Other long term (current) drug therapy
CPT/HCPCS: 85027; 19318; J2250; J1644; J1100; J2710; J2405; J0690; J2001; J3010; J0330; J2704; 88305

== ENCOUNTER → 2020-10-11 | Outpatient (CLI) | payer BC ==
--- NOTE | 2020-10-11 16:37 | P.PN ---
Progress Note - Text Progress Note Date: 10/11/20 Patient is a postoperative visit for left breast mammoplasty. She has developed some skin necrosis approximately 13 x 9 cm in the inferior aspect of the breast. The nipple areolar complex is intact and has sensation. The area of the skin was debrided. It appears that the epithelium underneath is viable. There is no evidence of any infection. The patient denies any pain. She has not had any fever or chills. Physical examination: Lungs: Clear Heart: Regular rate and rhythm Incision: The incision line appears to have eschar along it however the nipple areolar complexes pink and viable with sensation The skin appears to be necrotic approximately 9 x 13 cm and was debrided Impression: echymosis/necrosis of skin approximately 13 x 9 cm viable nipple areolar complex, Does not appear to be full-thickness The area of necrosis was debrided Patient will be started on Silvadene with daily dressing changes Follow up in 1 week Patient has stopped smoking prior to surgery and has not been around anyone who was smoking she will continue to stay away from nicotine
[2020-10-11 16:55] VITALS: BP 167/81; PULSE 90; RESP 18; TEMP 98.1
--- NOTE | 2020-10-12 12:07 | P.PN ---
Progress Note - Text Progress Note Date: 10/12/20 I have discussed Rosa's case with plastic surgery. At this time wound debridement and conservative management is recommended to the patient. We have discussed the possibility of hyperbaric oxygen treatment and I have called the wound clinic with respect to this. The wound clinic is willing to see the patient however when I called the patient the patient states she is having no pain at this time she is not interested in being seen at the wound clinic. I discussed with her the potential benefits of hyperbaric oxygen treatment The possible benefit in saving flap tissue and again she states she is not interested at this time. She is again instructed on use of Silvadene, to call if she has any concerns, to call immediately if she has any fever or chills. She has also been instructed in not smoking, protein supplementation, vitamin C. She will be seen again next week.
== END | disposition home or self-care (01) ==
LOC: WWCWWP 16:05
PROVIDERS: ATTEND Surgery
DX: Z53.9 Procedure and treatment not carried out, unspecified reason (principal)

== ENCOUNTER → 2020-10-19 | Outpatient (CLI) | payer BC ==
[2020-10-19 12:00] VITALS: BP 146/79; PULSE 85; RESP 18; TEMP 98.2
--- NOTE | 2020-10-19 12:29 | P.PN ---
Progress Note - Text Progress Note Date: 10/19/20 Patient is here for a postoperative visit for left breast mammoplasty. She developed some skin necrosis approximately 13 x 9 cm in the inferior aspect of the breast noted on her first post op visit The nipple areolar complex is intact and has sensation. The area of the skin was again debrided. It appears that the epithelium underneath is viable. There is no evidence of any infection. The patient denies any pain. She has not had any fever or chills. The area appears to have decreased in size to 10 x 8 cm. She has been using Silvadene cream. Physical examination: Lungs: Clear Heart: Regular rate and rhythm Incision: The incision line appears to have eschar along it however the nipple areolar complexes pink and viable with sensation; Sutures were removed around the areolar complex, the remainder of sutures are intact The skin appears to be necrotic approximately 8x 10 cm and was debrided Impression: echymosis/necrosis of skin approximately 10 x 8cm viable nipple areolar complex, Does not appear to be full-thickness The area of necrosis was debrided Patient will be continue Silvadene with daily dressing changes Follow up in 1 week Patient has stopped smoking prior to surgery and has not been around anyone who was smoking she will continue to stay away from nicotine I have again discussed with the patient hyperbaric oxygen therapy, patient at this time has declined
== END | disposition home or self-care (01) ==
LOC: WWCWWP 11:36
PROVIDERS: ATTEND Surgery
DX: Z53.9 Procedure and treatment not carried out, unspecified reason (principal)

== ENCOUNTER → 2020-10-25 | Outpatient (CLI) | payer BC ==
[2020-10-25 16:58] VITALS: BP 174/62; PULSE 113; RESP 18; TEMP 98
--- NOTE | 2020-10-25 17:25 | P.PN ---
Subjective Progress Note Date: 10/25/20 Principal diagnosis: post op after mammoplasty Patient is here for a postoperative visit for left breast mammoplasty. She developed some skin necrosis approximately 13 x 9 cm in the inferior aspect of the breast noted on her first post op visit The nipple areolar complex is int act and has sensation. The area of the skin was again debrided. It appears that the epithelium underneath is viable. There is no evidence of any infection. The patient denies any pain. She has not had any fever or chills. The area appeared to have decreased in size to 10 x 8 cm. on her visit a week ago. The area measured today is again 13 x 9 cm in size. The medial area of skin appears to have full-thickness necrosis. She had serous drainage within the area was depleted. There is no evidence of infection. The patient was again given the option of being seen in the wound clinic and declined. The black eschar along the inferior aspect of the incision appears to have sloughed. Physical examination: Lungs: Clear Heart: Regular rate and rhythm Incision: The incision line appears to have eschar along it however the nipple areolar complexes pink and viable with sensation; Sutures were removed around the areolar complex, sutures on the inferior aspect of the incision were removed. The skin appears to be necrotic approximately 9 x 13 cm and was debrided In the medial aspect of the incision full-thickness debridement was performed and the tissue underneath appeared to be pink and viable. Impression: echymosis/necrosis of skin approximately 9 x 13 cm viable nipple areolar complex, Does now appear to be full thickness on the medical aspect The area of necrosis was debrided Patient will be continue Silvadene with daily dressing changes Follow up in 1 week Patient has stopped smoking prior to surgery and has not been around anyone who was smoking she will continue to stay away from nicotine I have again discussed with the patient hyperbaric oxygen therapy, patient at this time has declined, patient again declined wound care I have also offered the patient home healthcare which she has declined Objective - Vital Signs Vital signs: Vital Signs Temp 98.0 F 10/25/20 16:55 Pulse 113 H 10/25/20 16:55 Resp 18 10/25/20 16:55 BP 174/62 10/25/20 16:55 Pulse Ox 97 10/25/20 16:55 Intake & Output 10/24/20 10/25/20 10/25/20 18:59 06:59 18:59 Weight 63.503 kg
== END | disposition home or self-care (01) ==
LOC: WWCWWP 16:21
PROVIDERS: ATTEND Surgery
DX: Z53.9 Procedure and treatment not carried out, unspecified reason (principal)

== ENCOUNTER → 2020-11-01 | Outpatient (CLI) | payer BC ==
[2020-11-01 15:56] VITALS: BP 106/69; PULSE 95; RESP 18; TEMP 98
--- NOTE | 2020-11-01 17:08 | P.PN ---
Subjective Progress Note Date: 11/01/20 post op after mammoplasty Patient is here for a postoperative visit for left breast mammoplasty. She dev eloped some skin necrosis approximately 13 x 9 cm in the inferior aspect of the breast noted on her first post op visit The nipple areolar complex is intact and has sensation. The area of the skin was again debrided. It appears that the epithelium underneath is viable. There is no evidence of any infection. The patient denies any pain. She has not had any fever or chills. The area appeared to have decreased in size to 10 x 8 cm. on her visit a week ago. The area measured today is again 13 x 9 cm in size. The medial area of skin appears to have full-thickness necrosis. She had serous drainage within the area was debrided. She is not having any drainage from this site. At this time she is states that the area has sealed. There is no evidence of infection. The patient was again given the option of being seen in the wound clinic and declined. The black eschar along the inferior aspect of the incision appears to have sloughed. Physical examination: Lungs: Clear Heart: Regular rate and rhythm Incision: The incision line the eschar has left. it however the nipple areolar complexes pink and viable with sensation; Sutures were removed around the areolar complex, sutures on the inferior aspect of the incision were removed. The underlying tissue appears to be viable. The skin appeared to be necrotic approximately 9 x 13 cm and was debrided In the medial aspect of the incision full-thickness debridement was performed and the tissue underneath appeared to be pink and viable; the full-thickness debridement which occurred last week does not have any opening for packing and the tissue appears to be granulating without any evidence of infection Impression Post mammoplasty necrosis of the skin flaps, we have been cautiously debriding these and it appears that there is clean granulation tissue underneath The area of necrosis was debrided Patient will be continue Silvadene with daily dressing changes Follow up in 1 week Patient has stopped smoking prior to surgery and has not been around anyone who was smoking she will continue to stay away from nicotine I have again discussed with the patient hyperbaric oxygen therapy, patient at this time has declined, patient again declined wound care I have also offered the patient home healthcare which she has declined Objective - Vital Signs Vital signs: Vital Signs Temp 98.0 F 11/01/20 15:53 Pulse 95 11/01/20 15:53 Resp 18 11/01/20 15:53 BP 106/69 11/01/20 15:53 Pulse Ox 98 11/01/20 15:53 Intake & Output 10/31/20 11/01/20 11/01/20 18:59 06:59 18:59 Weight 63.503 kg
== END | disposition home or self-care (01) ==
LOC: WWCWWP 15:44
PROVIDERS: ATTEND Surgery
DX: L76.82 Other postprocedural complications of skin and subcutaneous tissue (principal); Z98.890 Other specified postprocedural states

== ENCOUNTER → 2020-11-08 | Outpatient (CLI) | payer BC ==
[2020-11-08 16:19] VITALS: BP 102/66; PULSE 98; RESP 18; TEMP 98.3
--- NOTE | 2020-11-08 17:02 | P.PN ---
Progress Note - Text post op after mammoplasty Patient is here for a postoperative visit for left breast mammoplasty. She developed some skin necrosis approximately 13 x 9 cm in the inferior medial and lateral aspect of the breast noted on her first post op visit The nipple areolar complex is intact and has sensation. The area of the skin was again debrided. It appears that the tissue underneath is viable. There is no evidence of any infection. The patient denies any pain. She has not had any fever or chills. The medial area of skin appears to have full-thickness necrosis. She had serous drainage within the area was debrided. She is not having any drainage from this site. At this time she is states that the area has sealed. There is no evidence of infection. The patient was again given the option of being seen in the wound clinic and declined. The black eschar along the inferior aspect of the incision appears to have sloughed. The patient has no complaints on her visit today. She is not complaining of any fever or chills. She is not complaining of any pain. Physical examination: Lungs: Clear Heart: Regular rate and rhythm Incision: The nipple areolar complexes pink and viable with sensation; All Sutures were removed. The skin is necrotic and was debrided. The underlying tissue appears to be viable. The skin appeared to be necrotic approximately 9 x 13 cm and was debrided In the medial aspect of the incision full-thickness debridement was performed and the tissue underneath appeared to be pink and viable; the full-thickness debridement which occurred 2 weeks ago does not have any opening for packing and the tissue appears to be granulating without any evidence of infection. There is evident granulation tissue on the lateral aspect of the incision as well as in the midportion of the wound. Further debridement was performed today. The size of the defect appears to be 10 cm x 8 cm today. Impression Post mammoplasty necrosis of the skin flaps, we have been cautiously debriding these and it appears that there is clean granulation tissue underneath The area of necrosis was debrided Patient will be continue Silvadene with daily dressing changes Follow up in 1 week Patient has stopped smoking prior to surgery and has not been around anyone who was smoking she will continue to stay away from nicotine I have again discussed with the patient hyperbaric oxygen therapy, patient at this time has declined, patient declined wound care I have also offered the patient home healthcare which she has declined
== END | disposition home or self-care (01) ==
LOC: WWCWWP 16:03
PROVIDERS: ATTEND Surgery
DX: N64.1 Fat necrosis of breast (principal); Z98.890 Other specified postprocedural states; Z87.891 Personal history of nicotine dependence; K21.9 Gastro-esophageal reflux disease without esophagitis; E78.5 Hyperlipidemia, unspecified; I10 Essential (primary) hypertension

== ENCOUNTER → 2020-11-15 | Outpatient (CLI) | payer BC ==
[2020-11-15 16:17] VITALS: BP 96/63; PULSE 94; RESP 18; TEMP 98.3
--- NOTE | 2020-11-15 17:05 | P.PN ---
Progress Note - Text Progress Note Date: 11/15/20 post op after mammoplasty Patient is here for a postoperative visit for left breast mammoplasty. She developed some skin necrosis approximately 13 x 9 cm in the inferior medial and lateral aspect of the breast noted on her first post op visit The nipple areolar complex is intact and has sensation. The area of the skin was again debrided. It appears that the tissue underneath is viable. There is no evidence of any infection. The patient denies any pain. She has not had any fever or chills. The medial area of skin appears to have full-thickness necrosis. She had serous drainage within the area was debrided. She is not having any drainage from this site. At this time she is states that the area has sealed. There is no evidence of infection. The patient was again given the option of being seen in the wound clinic and declined. The patient has no complaints on her visit today. She is not complaining of any fever or chills. She is not complaining of any pain. Physical examination: Incision: The nipple areolar complexes pink and viable with sensation; several sutures were placed to bridge tissue medially and laterally. The underlying tissue appears to be viable. There is evident granulation tissue on the lateral aspect of the incision as well as in the midportion of the wound. Further debridement was performed today. The size of the defect appears to be 11 cm x 7 cm today. Impression Post mammoplasty necrosis of the skin flaps, we have been cautiously debriding these and it appears that there is clean granulation tissue underneath The area of necrosis was debrided Patient will be continue Silvadene with daily dressing changes Follow up in 1 week Patient has stopped smoking prior to surgery and has not been around anyone who was smoking she will continue to stay away from nicotine I have again discussed with the patient hyperbaric oxygen therapy, patient at this time has declined, patient declined wound care again today, I have discussed possible skin graft and at this time the patient is not interested
== END ==
LOC: WWCWWP 15:53
PROVIDERS: ATTEND Surgery
DX: L76.82 Other postprocedural complications of skin and subcutaneous tissue (principal); Z98.890 Other specified postprocedural states

== ENCOUNTER → 2020-11-22 | Outpatient (CLI) | payer BC ==
--- NOTE | 2020-11-22 17:13 | P.PN ---
Progress Note - Text Progress Note Date: 11/22/20 post op after mammoplasty Patient is here for a postoperative visit for left breast mammoplasty. She developed some skin necrosis approximately 13 x 9 cm in the inferior medial and lateral aspect of the breast noted on her first post op visit The nipple areolar complex is intact and has sensation. The medial flap was debrided. It appears that the tissue underneath is viable. There is no evidence of any infection. The patient denies any pain. She has not had any fever or chills. She is not having any drainage from this site. At this time she is states that the area has sealed. There is no evidence of infection. The patient was again given the option of being seen in the wound clinic and declined. At this time the area of the wound has nice granulation tissue. Her case was discussed with the nurse practitioner in wound clinic and recommendation for a collagen dressing was made. I discussed this with the patient and if her insurance will cover that she would be interested in using this. The patient has no complaints on her visit today. She is not complaining of any fever or chills. She is not complaining of any pain. Physical examination: Incision: The nipple areolar complexes pink and viable with sensation; several sutures were placed to bridge tissue medially and laterally on her last visit and these are intact. Several additional sutures were placed on today's visit. There is evident granulation tissue on the lateral aspect of the incision as we ll as in the midportion of the wound. Further debridement was performed today. The size of the defect appears to be 10cm x 6cm today, decreased from 11 x 7 cm last week. Impression/Plan: Post mammoplasty necrosis of the skin flaps, we have been cautiously debriding these and it appears that there is clean granulation tissue underneath The area of necrosis was debrided Patient will be continue Silvadene with daily dressing changes; she has requested to return tomorrow to see the nurse from the wound clinic in our office. We are going to contact her medical to see if they have collagen dres sings available and if her insurance will cover them. Patient has stopped smoking prior to surgery and has not been around anyone who was smoking she will continue to stay away from nicotine The patient continues to decline appointment with the wound clinic however is willing to use a collagen dressing if her insurance will cover it. She is also willing to meet with the nurse for wound clinic if it can happen in our office. We are going to try to arrange this for tomorrow.
== END ==
LOC: WWCWWP 16:06
PROVIDERS: ATTEND Surgery
DX: L76.82 Other postprocedural complications of skin and subcutaneous tissue (principal); Z98.890 Other specified postprocedural states

== ENCOUNTER → 2020-11-23 | Outpatient (CLI) | payer BC ==
--- NOTE | 2020-11-28 08:36 | P.CONS ---
History of Present Illness - Reason for Consult Consult date: 11/23/20 wound care - History of Present Illness This 55-year-old patient being seen in the [facility] for nonhealing ulceration to the left breast. She is post mammoplasty. She developed some skin necrosis approximately 13 x 9 in the inferior medial and lateral aspect of the breast. The nipple area low complex is intact and has a sensation. There is no evidence of infection. Patient has been having debridements in [facility] with Dr. Gavin Rincon. Patient has a nonhealing open ulceration exposure, wound bed shows granulation. Moderate Slough and nonviable tissue and moderate serosanguineous drainage. Wound edges are attached to the wound base. No tunneling or undermining noted. Wound measurements 7 x 11 x 0.2 cm Review Of Systems: Constitutional: No fever, no chills, no night sweats. No weight change. No weakness, fatigue or lethargy. No daytime sleepiness. Integumentary:reports wounds, no lesions. No rash or pruritus. No unusual bruising. No change in hair or nails. Physical exam: General Appearance: Alert, cooperative, no distress, appears stated age. Skin: See HPI all other Skin color, texture, tugor normal, no rashes or lesions. Neurologic: Alert oriented x3 Assessment: 1. Left breast nonhealing ulceration with fat layer exposure 2. Postop mammoplasty 3. Nicotine dependence Plan: 1. Apply collagen, saline moistened gauze, dry gauze, ABDs secure with support bra. Change Thursday. Continue appointment with Dr. Gavin kendrick as needed. We will be happy to see her in the wound care center if she chooses at this time we will continue to follow with Dr. Gavin kendrick as needed. Thank you for the consultation any questions contact the wound care center DNP note has been reviewed and discussed with Dr. Arriola and the impression and plan of care has been directed as dictated. Past Medical History Past Medical History: GERD/Reflux, Hyperlipidemia, Hypertension, Liver Disease, Skin Disorder Additional Past Medical History / Comment(s): eczema; fatty liver; ETOH -quit drinking in 2014 History of Any Multi-Drug Resistant Organisms: None Reported Past Surgical History: Cholecystectomy, Tubal Ligation, Uterine Ablation Additional Past Surgical History / Comment(s): x3; D&C; uterine ablation; wisdom teeth extraction x4; right breast excisional biopsy via reduction mammaplasty 05/08/20; Past Anesthesia/Blood Transfusion Reactions: No Reported Reaction Past Psychological History: No Psychological Hx Reported Additional Psychological History / Comment(s): Pt lives at home with her and 2 of her 3 grown children. She is independent. She drives a car. She uses no assistive devices and has no home care agencies. Smoking Status: Former smoker Past Alcohol Use History: Rare Additional Past Alcohol Use History / Comment(s): Pt states hx of drinks 7-8 beers a day for approximately a couple of years, now only drinks rarely. She sm oked 1/2 ppd since age 16yrs, down to 4-5 cigarettes per day. states quit 09/25/19 Past Drug Use History: None Reported - Past Family History Father Family Medical History: Cancer Additional Family Medical History / Comment(s): prostate cancer Mother Family Medical History: No Reported History Additional Family Medical History / Comment(s): Mother from bronchitis in her 60's. Medications and Allergies Home Medications Medication Instructions Recorded Confirmed Type lisinopriL [Lisinopril] 20 mg PO QAM 12/05/14 11/22/20 History Ezetimibe [Zetia] 10 mg PO HS 02/02/20 11/22/20 History Omeprazole [PriLOSEC] 40 mg PO AC-BRKFST 02/02/20 11/22/20 History Stool Softner 1 tab PO QAM 05/03/20 11/22/20 History Hydrochlorothiazide 25 mg PO QAM 10/25/20 11/22/20 History [hydroCHLOROthiazide] Ascorbic Acid [Vitamin C] 500 mg PO DAILY 11/01/20 11/22/20 History SILVER sulfADIAZINE CREAM 1 applic TOPICAL BID 11/08/20 11/22/20 History [Silvadene Cream] Allergies Allergy/AdvReac Type Severity Reaction Status Date / Time No Known Drug Allergies Allergy Unknown Verified 11/22/20 16:15
== END ==
LOC: WWCWWP 12:33
PROVIDERS: ATTEND Surgery
DX: N61.1 Abscess of the breast and nipple (principal); Z98.890 Other specified postprocedural states; K21.9 Gastro-esophageal reflux disease without esophagitis; E78.5 Hyperlipidemia, unspecified; I10 Essential (primary) hypertension; Z87.891 Personal history of nicotine dependence

== ENCOUNTER → 2020-11-29 | Outpatient (CLI) | payer BC ==
[2020-11-29 16:15] VITALS: BP 109/71; PULSE 82; RESP 18; TEMP 98.3
--- NOTE | 2020-11-29 16:52 | P.PN ---
Progress Note - Text Progress Note Date: 11/29/20 Patient is here for a postoperative visit for left breast mammoplasty. She developed some skin necrosis approximately 13 x 9 cm in the inferior medial and lateral aspect of the breast noted on her first post op visit The nipple areolar complex is intact and has sensation. The medial flap was debrided. It appears that the tissue underneath is viable. There is no evidence of any infection. The patient denies any pain. She has not had any fever or chills. She is not having any drainage from this site. There is no evidence of infection. Last week the patient was seen in our office by the nurse practitioner from wound clinic. At this time the area of the wound has nice granulation tissue. It was recommended she be treated with a collagen dressing. This was started last week. The patient is doing well with a collagen dressing. She took the dressing off earlier today and comes in for evaluation of the wound. The patient has no complaints on her visit today. She is not complaining of any fever or chills. She is not complaining of any pain. Physical examination: Incision: The nipple areolar complexes pink and viable with sensation; several sutures were placed to bridge tissue medially and laterally on her last visit and these are intact, several additional sutures were placed on today's visit. This appears to be holding the tissue together allowing for more rapid healing. There is evident granulation tissue throughout the whole wound. Further debridement was performed today. The size of the defect appears to be 10cm x 6cm today, decreased from 11 x 7 cm last week. Impression/Plan: Post mammoplasty necrosis of the skin flaps, we have been cautiously debriding these and it appears that there is clean granulation tissue underneath The area of necrosis was debrided Patient has begun to use silver collagen dressing which appears to be facilitating faster healing of the wound. We only have enough collagen dressing for today's dressing change. We are going to talk to wound clinic tomorrow to see if we can get more collagen dressing available for the patient. If we are unable to we will continue with Silvadene. Patient has stopped smoking prior to surgery and has not been around anyone who was smoking she will continue to stay away from nicotine The patient continues to decline appointment with the wound clinic however is willing to use a collagen dressing if her insurance will cover it.
== END ==
LOC: WWCWWP 15:34
PROVIDERS: ATTEND Surgery
DX: N64.1 Fat necrosis of breast (principal); F17.200 Nicotine dependence, unspecified, uncomplicated; Z98.82 Breast implant status

== ENCOUNTER → 2020-12-06 | Outpatient (CLI) | payer BC ==
[2020-12-06 16:32] VITALS: BP 96/59; PULSE 62; RESP 18; TEMP 98.2
--- NOTE | 2020-12-06 17:12 | P.PN ---
Progress Note - Text Progress Note Date: 12/06/20 Patient is here for a postoperative visit for left breast mammoplasty. She developed some skin necrosis approximately 13 x 9 cm in the inferior medial and lateral aspect of the breast noted on her first post op visit The nipple areolar complex is intact and has sensation. There is no evidence of any infection. The patient denies any pain. She has not had any fever or chills. She is not having any drainage from this site. There is no evidence of infection. The patient was seen in our office by the nurse practitioner from wound clinic. At this time the area of the wound has nice granulation tissue. It was recommended she be treated with a collagen dressing. This was started 2 weeks. The patient is doing well with a collagen dressing. She took the dressing off earlier today and comes in for evaluation of the wound. The patient has no complaints on her visit today. She is not complaining of any fever or chills. She is not complaining of any pain. Physical examination: Incision: The nipple areolar complexes pink and viable with sensation; several sutures were placed to bridge tissue medially and laterally and these were removed several no additional sutures were placed on today's visit. There is evident granulation tissue throughout the whole wound. Further debridement was performed today. The size of the defect appears to be 10cm x 6cm today, decreased from 11 x 7 cm 2 weeks ago. Impression/Plan: Post mammoplasty necrosis of the skin flaps, we have been cautiously debriding these and it appears that there is clean granulation tissue underneath The area of necrosis was debrided Patient has begun to use silver collagen dressing which appears to be facilitating faster healing of the wound. Patient has stopped smoking prior to surgery and has not been around anyone who was smoking she will continue to stay away from nicotine The patient continues to decline appointment with the wound clinic however is willing to use a collagen dressing.
== END | disposition home or self-care (01) ==
LOC: WWCWWP 15:25
PROVIDERS: ATTEND Surgery
DX: L76.82 Other postprocedural complications of skin and subcutaneous tissue (principal)

== ENCOUNTER → 2020-12-20 | Outpatient (CLI) | payer BC ==
--- NOTE | 2020-12-20 16:29 | P.PN ---
Progress Note - Text Progress Note Date: 12/20/20 Patient is here for a postoperative visit for left breast mammoplasty. She developed some skin necrosis approximately 13 x 9 cm in the inferior medial and lateral aspect of the breast noted on her first post op visit The nipple areolar complex is intact and has sensation. There is no evidence of any infection. The patient denies any pain. She has not had any fever or chills. She is not having any drainage from this site. There is no evidence of infection. The patient was seen in our office by the nurse practitioner from wound clinic. At this time the area of the wound has nice granulation tissue. It was recommended she be treated with a collagen dressing. This was started 4 weeks ago. The patient is doing well with a collagen dressing. The patient has no complaints on her visit today. She is not complaining of any fever or chills. She is not complaining of any pain. Physical examination: Incision: The nipple areolar complexes pink and viable with sensation; several sutures were placed to bridge tissue medially and laterally and these were removed There is evident granulation tissue throughout the whole wound. Further debridement was performed today. The size of the defect appears to be 10cm x 5.5cm today, decreased from 11 x 7 cm 2 weeks ago. Impression/Plan: Post mammoplasty necrosis of the skin flaps, we have been cautiously debriding these and it appears that there is clean granulation tissue underneath The area of necrosis was debrided Patient has begun to use silver collagen dressing which appears to be facilitating faster healing of the wound. Patient has stopped smoking prior to surgery and has not been around anyone who was smoking she will continue to stay away from nicotine The patient continues to decline appointment with the wound clinic however is willing to use a collagen dressing.
== END ==
LOC: WWCWWP 16:03
PROVIDERS: ATTEND Surgery
DX: L76.82 Other postprocedural complications of skin and subcutaneous tissue (principal)

== ENCOUNTER → 2021-01-03 | Outpatient (CLI) | payer BC ==
[2021-01-03 16:09] VITALS: BP 118/73; PULSE 92; RESP 18; TEMP 98.2
--- NOTE | 2021-01-03 16:33 | P.PN ---
Progress Note - Text Progress Note Date: 01/03/21 Patient is here for a postoperative visit for left breast mammoplasty. She developed some skin necrosis approximately 13 x 9 cm in the inferior medial and lateral aspect of the breast noted on her first post op visit The nipple areolar complex is intact and has sensation. There is no evidence of any infection. The patient denies any pain. She has not had any fever or chills. She is not having any drainage from this site. There is no evidence of infection. The patient was seen in our office by the nurse practitioner from wound clinic. At this time the area of the wound has nice granulation tissue. It was recommended she be treated with a collagen dressing. This was started 6 weeks ago. The patient is doing well with a collagen dressing. The patient has no complaints on her visit today. She is not complaining of any fever or chills. She is not complaining of any pain. Physical examination: Incision: The nipple areolar complexes pink and viable with sensation; the area is granulating with no evidence of any infection There is evident granulation tissue throughout the whole wound. Further debridement was performed today. On last visit the defect was 10cm x 5.5cm today, decreased from 11 x 7 cm 2 weeks ago; The defect has decreased to 10cm by 3.5 m at this time 01-03-21. Impression/Plan: Post mammoplasty necrosis of the skin flaps, we have been cautiously debriding these and it appears that there is clean granulation tissue underneath The area of necrosis was debrided Patient has begun to use silver collagen dressing which appears to be facilitating faster healing of the wound. Patient has stopped smoking prior to surgery and has not been around anyone who was smoking she will continue to stay away from nicotine The patient continues to decline appointment with the wound clinic however is willing to use a collagen dressing. Follow up in 3 weeks.
== END ==
LOC: WWCWWP 16:02
PROVIDERS: ATTEND Surgery
DX: L76.82 Other postprocedural complications of skin and subcutaneous tissue (principal); Z87.891 Personal history of nicotine dependence

== ENCOUNTER → 2021-01-24 | Outpatient (CLI) | payer BC ==
[2021-01-24 16:14] VITALS: BP 105/72; PULSE 86; RESP 16; TEMP 98.4
--- NOTE | 2021-01-24 16:23 | P.PN ---
Progress Note - Text Progress Note Date: 01/24/21 Patient is here for a postoperative visit for left breast mammoplasty. She developed some skin necrosis approximately 13 x 9 cm in the inferior medial and lateral aspect of the breast noted on her first post op visit The nipple areolar complex is intact and has sensation. There is no evidence of any infection. The patient denies any pain. She has not had any fever or chills. She is not having any drainage from this site. There is no evidence of infection. The patient was seen in our office by the nurse practitioner from wound clinic. At this time the area of the wound has nice granulation tissue. It was recommended she be treated with a collagen dressing. This was started 9 weeks ago. The patient is doing well with a collagen dressing. The patient has no complaints on her visit today. She is not complaining of any fever or chills. She is not complaining of any pain. Physical examination: Incision: The nipple areolar complexes pink and viable with sensation; the area is granulating with no evidence of any infection There is evident granulation tissue throughout the whole wound. Further debridement was performed today. On last visit the defect was 10cm x 5.5cm today, decreased from 11 x 7 cm 2 weeks ago; The defect has decreased to 9 cm by 1.5 cm at this time 01-24-21. Impression/Plan: Post mammoplasty necrosis of the skin flaps, we have been cautiously debriding these and it appears that there is clean granulation tissue underneath The area of necrosis was debrided Patient has begun to use silver collagen dressing which appears to be facilitating faster healing of the wound. Patient has stopped smoking prior to surgery and has not been around anyone who was smoking she will continue to stay away from nicotine The patient continues to decline appointment with the wound clinic however is willing to use a collagen dressing. Follow up in 3 weeks.
== END ==
LOC: WWCWWP 16:04
PROVIDERS: ATTEND Surgery
DX: L76.82 Other postprocedural complications of skin and subcutaneous tissue (principal); F17.200 Nicotine dependence, unspecified, uncomplicated; Z98.82 Breast implant status

== ENCOUNTER → 2021-02-14 | Outpatient (CLI) | payer BC ==
[2021-02-14 16:43] VITALS: BP 97/64; PULSE 89; RESP 18; TEMP 98.3
--- NOTE | 2021-02-14 16:53 | P.PN ---
Progress Note - Text Progress Note Date: 02/14/21 Patient is here for a postoperative visit for left breast mammoplasty. She developed some skin necrosis approximately 13 x 9 cm in the inferior medial and lateral aspect of the breast noted on her first post op visit The nipple areolar complex is intact and has sensation. There is no evidence of any infection. The patient denies any pain. She has not had any fever or chills. She is not having any drainage from this site. There is no evidence of infection. The patient was seen in our office by the nurse practitioner from wound clinic. At this time the area of the wound has nice granulation tissue. It was recommended she be treated with a collagen dressing. This was started 13 weeks ago. The patient is doing well with the collagen dressing. The patient has no complaints on her visit today. She is not complaining of any fever or chills. She is not complaining of any pain. Physical examination: Incision: The nipple areolar complexes pink and viable with sensation; the area is granulating with no evidence of any infection There is evident granulation tissue throughout the whole wound. Further debridement was performed today. On last visit the defect was 10cm x 5.5cm today, decreased from 11 x 7 cm 2 weeks ago; The defect has decreased to 9 cm by 1.5 cm at this time 01-24-21. The defect on today's visit as 2 separate areas being more lateral areas 1 cm x 5 mm, and the other areas 4 centimeters by 1 cm Impression/Plan: Post mammoplasty necrosis of the skin flaps, we have been cautiously debriding these and it appears that there is clean granulation tissue underneath The area of necrosis was debrided Patient is using silver collagen dressing which appears to be facilitating faster healing of the wound. Patient has stopped smoking prior to surgery and has not been around anyone who was smoking she will continue to stay away from nicotine The patient continues to decline appointment with the wound clinic however is willing to use a collagen dressing. Follow up in 3 weeks.
== END ==
LOC: WWCWWP 16:10
PROVIDERS: ATTEND Surgery
DX: L76.82 Other postprocedural complications of skin and subcutaneous tissue (principal); Z87.891 Personal history of nicotine dependence

== ENCOUNTER → 2021-03-07 | Outpatient (CLI) | payer BC ==
[2021-03-07 16:06] VITALS: BP 109/71; PULSE 90; RESP 18; TEMP 98.5
--- NOTE | 2021-03-07 16:31 | P.PN ---
Progress Note - Text Progress Note Date: 03/07/21 Patient is here for a postoperative visit for left breast mammoplasty. She developed some skin necrosis approximately 13 x 9 cm in the inferior medial and lateral aspect of the breast noted on her first post op visit The nipple areolar complex was intact and had sensation. There was no evidence of any infection. The patient denied any pain. She did not have any fever or chills. She is not having any drainage from this site. There is no evidence of infection. The patient was seen in our office by the nurse practitioner from wound clinic. At that time the area of the wound had nice granulation tissue. It was recommended she be treated with a collagen dressing. The patient states approximately one week from her last visit she had complete healing of the wound. The patient has no complaints on her visit today. She is not complaining of any fever or chills. She is not complaining of any pain. Physical examination: Incision: The nipple areolar complexes pink and viable with sensation; the skin appears to be completely healed on today's visit. There is no evidence of any infection. Impression/Plan: Post mammoplasty necrosis of the skin flaps, which were cautiously debrided these appear to be completely healed at this time The patient is due for bilateral mammogram this will be scheduled and she will follow up after the mammogram
== END ==
LOC: WWCWWP 15:53
PROVIDERS: ATTEND Surgery
DX: L76.82 Other postprocedural complications of skin and subcutaneous tissue (principal); F17.200 Nicotine dependence, unspecified, uncomplicated; Z98.82 Breast implant status

== ENCOUNTER → 2021-05-02 | Outpatient (CLI) | payer BC ==
[2021-05-02 16:21] VITALS: BP 94/67; PULSE 85; RESP 18
--- NOTE | 2021-05-02 16:34 | P.PN ---
Subjective Progress Note Date: 05/02/21 Principal diagnosis: Fibrocystic breast changes Rosa is a 55 year old white female status post right breast reduction mammoplasty with a biopsy of a radial scar 9120. Pathology was benign. However she had marked asymmetry of the breast and a left breast reduction mamm oplasty was performed and [id number]: 2 cups of coffee per day and intermittent pop Smoking: Half pack per day for 17 years She is not exposed to secondhand smoke Chocolate: Intermittently Hormones: None at the present time Family history: father: prostate cancer Hormonal history: Menarche: 10 M1, breast fed: no, age at first : 23 menopause: uterine ablation 2007, age 47 hormones: BCP: 10 years no other hormones Surgical Hisgtory: 1. uterine ablation 2.D&C 3. C section times 3 4. wisdom teeth 5. gallbladder Medical History 1. none Social History: smoke: Half a pack per day for 17 years Alcohol: One time a month Drugs: Negative - Constitutional Constitutional: Reports sweats - EENT Eyes: denies blurred vision, denies pain Ears: deny: decreased hearing, tinnitus Ears, nose, mouth and throat: Denies headache, Denies sore throat - Breasts Breasts: bilateral: as per HPI - Cardiovascular Comment: HTN Cardiovascular: Denies chest pain, Denies shortness of breath - Respiratory Respiratory: Denies cough, - Gastrointestinal Gastrointestinal: Denies abdominal pain, Denies diarrhea, Denies nausea, Denies vomiting - Genitourinary (Female) Genitourinary: Denies dysuria, Denies hematuria - Menstruation Menstruation: Reports postmenopausal - Musculoskeletal Musculoskeletal: Denies myalgias - Integumentary Comment: excema Integumentary: Denies pruritus, Denies rash - Neurological Neurological: Denies numbness, Denies weakness - Psychiatric Psychiatric: Denies anxiety, Denies depression - Endocrine Endocrine: Denies fatigue, Denies weight change - Hematologic/Lymphatic Comment: none - Allergic/Immunologic Allergic/Immunologic: Reports as per HPI . Following the second procedure she had some necrosis of the skin which required conservative management. At this time she is doing well with no complaints. She had a bilateral mammogram performed on 8320 which was felt to be benign BIRADS 2 and bilateral mammogram in 1 year recommended. Objective - Vital Signs Vital signs: Vital Signs Temp Pulse 85 05/02/21 16:17 Resp 18 05/02/21 16:17 BP 94/67 05/02/21 16:17 Pulse Ox 94 L 05/02/21 16:17 Intake & Output 05/01/21 05/02/21 05/02/21 18:59 06:59 18:59 Weight 63.503 kg - Constitutional General appearance: Present: cooperative - EENT Eyes: Present: EOMI ENT: Present: hearing grossly normal - Neck Neck: Present: normal ROM - Respiratory Respiratory: bilateral: CTA - Cardiovascular Rhythm: regular Heart sounds: normal: S1, S2 - Musculoskeletal Musculoskeletal: Present: gait normal - Psychiatric Psychiatric: Present: A&O x's 3, appropriate affect, intact judgment & insight - Additional findings Additional findings: Breast Exam: BRA: sports bra large Inspection: Right breast is larger than left breast, patient has some scarring related to wound healing however there is no evidence of any infection or open sores Palpation: Right breast: Multi-positional exam fibrocystic changes no dominant masses or nodules of concern right axilla: No adenopathy of concern Left breast: multi-positional exam fibrocystic changes no dominant masses or nodules of concern Left axilla: No adenopathy of concern Assessment and Plan Assessment: Impression: 1. Fibrocystic breast disease 2. Recent bilateral mammogram benign Plan: 1. Bilateral mammogram in 1 year with appointment at that time CC: Tisha Zelaya
== END ==
LOC: WWCWWP 16:14
PROVIDERS: ATTEND Surgery
DX: N60.11 Diffuse cystic mastopathy of right breast (principal); F17.210 Nicotine dependence, cigarettes, uncomplicated

== ENCOUNTER → 2022-07-02 | Outpatient (CLI) | payer BC ==
--- NOTE | 2022-07-02 13:35 | MM ---
Reason for Exam: Clinical finding. Patient History: Menarche at age 10. First Full-Term at age 22. 05/08/2020, Benign Core Biopsy on the right side. 02/16/2020, High risk Core Biopsy on the right side. Risk Values: Debra 5 year model risk: 2.0%. NCI Lifetime model risk: 11.1%. Tissue Density: The breast tissue is heterogeneously dense. This may lower the sensitivity of mammography. Findings: Analyzed By CAD. Pattern appears symmetrical. There is coarse benign appearing calcification within the right breast. A few scattered coarse calcifications are within the left breast. A core marker is within the left breast. Overall Assessment: Benign, BI-RAD 2 Management: Screening Mammogram of both breasts in 1 year. A clinical breast exam by your physician is recommended on an annual basis and results should be correlated with mammographic findings. This exam should not preclude additional follow-up of suspicious palpable abnormalities. Results were given to the patient verbally at the time of exam. Electronically signed and approved by: Michael Apodaca D.O. Radiologis
== END | disposition home or self-care (01) ==
LOC: RADMAMWWP 12:51
PROVIDERS: ATTEND Surgery
DX: R92.8 Other abnormal and inconclusive findings on diagnostic imaging of breast (principal)
CPT/HCPCS: 77062; 77066

== ENCOUNTER → 2022-07-17 | Outpatient (CLI) | payer BC ==
[2022-07-17 16:34] VITALS: BP 90/60; PULSE 68; RESP 17; TEMP 97.8
--- NOTE | 2022-07-17 16:39 | P.PN ---
Progress Note - Text Progress Note Date: 07/17/22 The patient was last seen on [id number]. Breast exam was done at that time. No lesions of concern were identified which were worn in interventional biopsy. She had a bilateral mammogram performed on [id number]. This was benign BIRADS 2. It was personally reviewed. The patient's Debra risk is 2% at 5 years. We have discussed hormone prevention and the patient has declined. CC: Tisha Zelaya
== END | disposition home or self-care (01) ==
LOC: WWCWWP 16:26
PROVIDERS: ATTEND Surgery
DX: Z53.9 Procedure and treatment not carried out, unspecified reason (principal)

== ENCOUNTER → 2024-08-11 | Outpatient (CLI) | payer BC ==
--- NOTE | 2024-08-11 09:42 | P.PN ---
Subjective Progress Note Date: 08/11/24 Principal diagnosis: abnormal right breast mammogram 08-11-24 Principal diagnosis: Fibrocystic breast changes Rosa is a 59 year old white female status post right breast reduction mammoplasty with a biopsy of a radial scar 9119. Pathology was benign. However she had marked asymmetry of the breast and a left breast reduction mammoplasty was performed on . Following the second procedure she had some necrosis of the skin which required conservative management. At this time she is doing well with no complaints. She had a bilateral mammogram performed on 06-29-24 which led to additional views of the right breast performed on 07-11-2024. The findings were a large area of fat necrosis with associated calcifications redemonstrated upper outer quadrant anterior right breast, compression views demonstrated a dispersement of the density in the area of concern lower inner quadrant right breast. There was however a group of calcifications in the lower central aspect of the right breast for which biopsy was recommended. She is not complaining of any new lumps masses or nodules of concern in either breast. She has had no recent trauma or infection in the breast. Caffeine: 2 cups of coffee per day and intermittent pop Smoking: Half pack per day for 19 years She is not exposed to secondhand smoke Chocolate: Intermittently Hormones: None at the present time Family history: father: prostate cancer Hormonal history: Menarche: 10 M1, breast fed: no, age at first : 23 menopause: uterine ablation 2007, age 47 hormones: BCP: 10 years no other hormones Surgical Hisgtory: 1. uterine ablation 2.D&C 3. C section times 3 4. wisdom teeth 5. gallbladder 6. left breast reduction mamoplasty 7. right breast radial scar reduction mammoplasty Medical History 1. none Social History: smoke: Half a pack per day for 17 years Alcohol: One time a month Drugs: Negative - Constitutional Constitutional: Reports sweats - EENT Eyes: denies blurred vision, denies pain Ears: deny: decreased hearing, tinnitus Ears, nose, mouth and throat: Denies headache, Denies sore throat - Breasts Breasts: bilateral: as per HPI - Cardiovascular Comment: HTN Cardiovascular: Denies chest pain, Denies shortness of breath - Respiratory Respiratory: Denies cough, - Gastrointestinal Gastrointestinal: Denies abdominal pain, Denies diarrhea, Denies nausea, Denies vomiting - Genitourinary (Female) Genitourinary: Denies dysuria, Denies hematuria - Menstruation Menstruation: Reports postmenopausal - Musculoskeletal Musculoskeletal: Denies myalgias - Integumentary Comment: excema Integumentary: Denies pruritus, Denies rash - Neurological Neurological: Denies numbness, Denies weakness - Psychiatric Psychiatric: Denies anxiety, Denies depression - Endocrine Endocrine: Denies fatigue, Denies weight change - Hematologic/Lymphatic Comment: none - Allergic/Immunologic Allergic/Immunologic: Reports as per HPI Objective - Constitutional General appearance: Present: cooperative - EENT Eyes: Present: EOMI ENT: Present: hearing grossly normal - Neck Neck: Present: normal ROM - Respiratory Respiratory: bilateral: CTA - Cardiovascular Rhythm: regular Heart sounds: normal: S1, S2 - Integumentary Integumentary: Present: normal turgor - Musculoskeletal Musculoskeletal: Present: gait normal - Psychiatric Psychiatric: Present: A&O x's 3, appropriate affect, intact judgment & insight - Additional findings Additional findings: Breast Exam: BRA: medium sports bra Inspection: Right breast is larger than the left, scaring related to wound healing however no evidence of infection or open sores Palpation: Right breast: Multiple positional exam fibrocystic changes no dominant masses or nodules of concern Right axilla: No adenopathy of concern Left breast: multi positional exam fibrocystic changes no dominant masses or nodules of concern Left axilla: No adenopathy of concern Assessment and Plan Assessment: Impression: Fibrocystic breast changes bilateral mammogram on ; right breast mammogram recommended abnormal right breast mammogram on 07-11-24; recommend right breast stero biopsy Plan: right breast stero biopsy, Risk and benefits of the procedure discussed with the patient. Risk include but are not limited to bleeding, infection, reaction to the anesthetic. If the lesion and the pathology are felt to be discordant then further tissue acquisition may be recommended. CC: Tisha Zelaya
--- NOTE | 2024-08-12 09:54 | MM ---
Risk Values: Debra 5 year model risk: 2.1%. NCI Lifetime model risk: 10.6%. Procedure Description: The grouped calcifications medial right breast are Management: Diagnostic Mammogram of the right breast in 6 months. Electronically signed and approved by: Ashly Silvestre M.D. Radiologist
== END ==
LOC: WWCWWP 08:37
PROVIDERS: ATTEND Surgery
DX: R92.8 Other abnormal and inconclusive findings on diagnostic imaging of breast (principal); R92.1 Mammographic calcification found on diagnostic imaging of breast; N60.11 Diffuse cystic mastopathy of right breast; F17.210 Nicotine dependence, cigarettes, uncomplicated; N64.89 Other specified disorders of breast

== ENCOUNTER → 2024-08-11 | Day surgery (SDC) | payer BC ==
[~2024-08-11] MED LIST changes: +ALPRAZolam 0.5 MG TAB PO PRN; -DEXAMETHASONE SOD PHOSPHATE 4 MG/ML 1 ML VIAL IV ONE; -HYDROmorphone 0.5 MG/0.5 ML SYRINGE IVP PRN; -LACTATED RINGERS 1,000 ML IV SCH; -MIDAZOLAM 2 MG/2 ML VIAL IV PRN; -ONDANSETRON 4 MG/2 ML VIAL IVP ONE; -Pre Op ABX Message 1 EACH MISC MISCELLANE ONE; -SCOPOLAMINE 1.5MG/72HR PATCH TRANSDERM ONE
[2024-08-11] MEDS: ALPRAZolam 0.25 MG TAB PO PRN (09:48)
[2024-08-11 09:55] VITALS: BP 150/80; PULSE 76; RESP 16; TEMP 98.6
== END ==
LOC: RADMAMWWP 09:17
PROVIDERS: ATTEND Surgery
DX: R92.8 Other abnormal and inconclusive findings on diagnostic imaging of breast (principal); Z53.8 Procedure and treatment not carried out for other reasons